=== PATIENT | female | born 1955 | race African-American/Black ===

== ENCOUNTER 2020-11-10 06:56 | Inpatient (IN) | payer MEDICARE, OTHER ==
[~2020-11-10] VITALS: Ht 165.1 cm; Wt 73.6 kg
[~2020-11-10 06:56] MED LIST: B50 PO; GABA300S PO; HYDR-4009 PO; LORA2TAB2 PO; MAG-55 PO; OMEP20TA15 PO; TRIA1TAB92 PO
[2020-11-10 08:44] LABS: BASOPHILS % 0.4 % (0.0-2.0); EOSINOPHILS % 0.8 % (0.0-5.0); HEMATOCRIT. 40.1 % (36.0-48.0); HEMOGLOBIN. 13.5 g/dL (12.0-16.0); LYMPHOCYTES % 52.5 % (20.0-50.0); MEAN CORPUSCULAR HEMOGLOBIN 29.7 pg (28.0-32.0); MEAN CORPUSCULAR VOLUME 88.3 fL (81.0-99.0); MEAN PLATELET VOLUME 7.3 fl (7.4-10.4); MONOCYTES % 13.2 % (2.0-8.0); NEUTROPHILS % 33.1 % (40.0-76.0); PLATELET 206 x1000/uL (130-400); RED BLOOD CELL COUNT 4.54 mill/uL (4.2-5.4); RED CELL DISTRIBUTION WIDTH 14.5 % (11.6-14.6)
[2020-11-10 08:50] LABS: CHLORIDE 109 mEq/L (98-107)
[2020-11-10] MEDS ORDERED: FUROSEMIDE 100MG/10ML VIAL IV STA (09:26)
[2020-11-10] MEDS ORDERED: CALCIUM CHLORIDE 1GM/10ML SYR IV ONE (09:30)
[2020-11-10] MEDS ORDERED: SODIUM BICARBONATE 8.4% 1 MEQ/ML 50ML SYR IV ONE (09:30)
[2020-11-10] MEDS ORDERED: INSULIN REGULAR (HUMULIN R) 300UNITS/3ML VIAL IV ONE (09:30)
[2020-11-10] MEDS ORDERED: DEXTROSE 50% WATER 50ML SYRINGE IV ONE (09:30)
[2020-11-10] MEDS ORDERED: ALBUTEROL (0.083%) 2.5MG/3ML NEB HHN ONE (09:30)
[2020-11-10 10:02] LABS: BG BASE EXCESS 1.5 mmol/L (-2.0-2.0); BG CARBOXYHEMOGLOBIN 0.1 % (0.5-1.5); BG DEOXYHEMOGLOBIN 3.6 % (0.0-5.0); BG FRACTION INSPIRED OXYGEN 21; BG HCO3 ACT 25.2 mmol/L (22.0-26.0); BG METHEMOGLOBIN 0.2 % (0.0-1.5); BG OXYGEN SATURATION 96.4 % (92.0-98.5); BG OXYHEMOGLOBIN 96.1 % (94.0-97.0); BG PCO2 36.8 mmHg (35.0-45.0); BG PH 7.453 (7.350-7.450); BG PO2 81.2 mmHg (75.0-100.0); BG SAMPLE SITE RIGHT BRACHIAL; BG VENT MODE ROOM AIR
[2020-11-10] MEDS ORDERED: DOCUSATE SODIUM 100MG CAPSULE PO PRN (12:00)
[2020-11-10] MEDS ORDERED: IPRATROPIUM/ALBUTEROL 0.5-3(2.5)MG/3ML NEB HHN PRN (12:00)
[2020-11-10] MEDS ORDERED: CLONIDINE 0.1MG TABLET PO PRN (12:00)
[2020-11-10] MEDS ORDERED: NALOXONE HCL 0.4MG/ML VIAL IV PRN (12:00)
[2020-11-10] MEDS ORDERED: ENOXAPARIN 60MG/0.6ML SYR SUBCUT ONE (12:45)
[2020-11-10] MEDS: OMEPRAZOLE 20MG CAPSULE EXTENDED RELEASE PO SCH (14:49)
[2020-11-10] MEDS: GABAPENTIN 300MG CAPSULE PO SCH (14:49)
[2020-11-10 14:52] LABS: *BARBITURATES SCREEN URINE NEGATIVE (NEGATIVE); *BENZODIAZEPINES SCREEN URINE NEGATIVE (NEGATIVE); *COCAINE SCREEN URINE NEGATIVE (NEGATIVE)
[2020-11-10 14:53] LABS: CANNABINOID URINE SCREEN NEGATIVE (NEGATIVE); METHADONE URINE SCREEN NEGATIVE (NEGATIVE)
[2020-11-10 14:54] LABS: *AMPHETAMINES SCREEN URINE NEGATIVE (NEGATIVE)
[2020-11-10 14:59] LABS: PHENCYCLIDINE URINE SCREEN NEGATIVE (NEGATIVE)
[2020-11-10 15:01] LABS: OPIATES URINE SCREEN NEGATIVE (NEGATIVE)
[2020-11-10] MEDS: POLYETHYLENE GLYCOL 3350 (17GM) 1 DOSE PACK PO SCH (15:26)
[2020-11-10 16:28] LABS: C REACTIVE PROTEIN QUANT 9.4 mg/L (0.0-3.0)
[2020-11-10] MEDS: HYDROCODONE/ACETAMINOPHEN 5/325MG TABLET PO PRN (19:44)
[2020-11-10 20:00] VITALS: BP 123/74
[2020-11-10] MEDS: LORAZEPAM 0.5MG TABLET PO PRN (21:09)
[2020-11-10] MEDS: ACETAMINOPHEN 325MG TABLET PO PRN (21:09)
[2020-11-10 22:07] VITALS: BP 123/74
[2020-11-11] VITALS: BP 102/68
[2020-11-11] MEDS: HYDROCODONE/ACETAMINOPHEN 5/325MG TABLET PO PRN ×3 (01:03→21:41)
[2020-11-11 04:00] VITALS: BP 106/58
[2020-11-11] MEDS: ACETAMINOPHEN 325MG TABLET PO PRN ×2 (06:05→20:37)
[2020-11-11 08:00] VITALS: BP 120/73
[2020-11-11] MEDS: ONDANSETRON HCL 4MG/2ML INJ IV PRN ×2 (08:31→19:39)
[2020-11-11] MEDS: OMEPRAZOLE 20MG CAPSULE EXTENDED RELEASE PO SCH (08:58)
[2020-11-11] MEDS: POLYETHYLENE GLYCOL 3350 (17GM) 1 DOSE PACK PO SCH (08:58)
[2020-11-11] MEDS: GABAPENTIN 300MG CAPSULE PO SCH ×3 (08:58→17:27)
[2020-11-11 10:39] LABS: HEMATOCRIT. 40.3 % (36.0-48.0); HEMOGLOBIN. 13.4 g/dL (12.0-16.0); MEAN CORPUSCULAR VOLUME 87.6 fL (81.0-99.0); MEAN PLATELET VOLUME 7.6 fl (7.4-10.4); PLATELET 198 x1000/uL (130-400); RED CELL DISTRIBUTION WIDTH 14.2 % (11.6-14.6)
[2020-11-11 10:40] LABS: CHLORIDE 101 mEq/L (98-107)
[2020-11-11 10:46] LABS: LDL CHOLESTEROL 132 mg/dL (5-100)
[2020-11-11 10:48] LABS: HDL CHOLESTEROL 67 mg/dL (40-59)
[2020-11-11 10:49] LABS: T4 FREE 0.89 ng/dL (0.76-1.46)
[2020-11-11 12:00] VITALS: BP 98/61
[2020-11-11] MEDS: ENOXAPARIN 40MG/0.4ML SYR SUBCUT SCH (12:11)
[2020-11-11] MEDS: SODIUM CHLORIDE 0.9% 1,000 ML IV SCH (12:12)
[2020-11-11 16:00] VITALS: BP 148/69
[2020-11-11 20:00] VITALS: BP 116/63
[2020-11-11] MEDS: LORAZEPAM 0.5MG TABLET PO PRN (21:41)
[2020-11-11 22:18] LABS: CREATINE KINASE 142 IU/L (26-192)
[2020-11-11 22:19] LABS: CREATINE KINASE MB FRACTION < 1.0 ng/mL (0.5-3.6)
[2020-11-12] VITALS: BP 99/64
[2020-11-12 00:37] LABS: CREATINE KINASE 146 IU/L (26-192)
[2020-11-12 00:38] LABS: CREATINE KINASE MB FRACTION < 1.0 ng/mL (0.5-3.6)
[2020-11-12] MEDS: SODIUM CHLORIDE 0.9% 1,000 ML IV SCH ×2 (03:33→12:47)
[2020-11-12] MEDS: HYDROCODONE/ACETAMINOPHEN 5/325MG TABLET PO PRN ×4 (03:33→23:44)
[2020-11-12 04:00] VITALS: BP 91/56
[2020-11-12 07:58] LABS: CHLORIDE 102 mEq/L (98-107)
[2020-11-12 08:00] VITALS: BP 108/61
[2020-11-12 08:04] LABS: CREATINE KINASE 165 IU/L (26-192)
[2020-11-12] MEDS: OMEPRAZOLE 20MG CAPSULE EXTENDED RELEASE PO SCH (09:41)
[2020-11-12] MEDS: ACETAMINOPHEN 325MG TABLET PO PRN ×2 (09:41→23:58)
[2020-11-12] MEDS: POLYETHYLENE GLYCOL 3350 (17GM) 1 DOSE PACK PO SCH (09:42)
[2020-11-12] MEDS: ENOXAPARIN 40MG/0.4ML SYR SUBCUT SCH (09:42)
[2020-11-12] MEDS: GABAPENTIN 300MG CAPSULE PO SCH ×3 (09:43→17:03)
[2020-11-12 09:49] LABS: BASOPHILS % 0.3 % (0.0-2.0); EOSINOPHILS % 0.1 % (0.0-5.0); HEMATOCRIT. 39.6 % (36.0-48.0); HEMOGLOBIN. 13.1 g/dL (12.0-16.0); LYMPHOCYTES % 32.4 % (20.0-50.0); MEAN CORPUSCULAR HEMOGLOBIN 29.4 pg (28.0-32.0); MEAN CORPUSCULAR VOLUME 88.6 fL (81.0-99.0); MEAN PLATELET VOLUME 8.2 fl (7.4-10.4); MONOCYTES % 9.3 % (2.0-8.0); NEUTROPHILS % 57.9 % (40.0-76.0); PLATELET 170 x1000/uL (130-400); RED BLOOD CELL COUNT 4.47 mill/uL (4.2-5.4); RED CELL DISTRIBUTION WIDTH 14.6 % (11.6-14.6)
[2020-11-12 12:00] VITALS: BP 117/95
[2020-11-12] MEDS: GUAIFENESIN-DM 200MG-20MG/10ML UDC PO PRN ×3 (12:46→21:10)
[2020-11-12 15:48] VITALS: BP 142/77
[2020-11-12 16:59] LABS: PLATELET ESTIMATE NORMAL
[2020-11-12] MEDS: LORAZEPAM 0.5MG TABLET PO PRN (17:17)
[2020-11-12 20:00] VITALS: BP 110/55
[2020-11-13] VITALS: BP 130/65
[2020-11-13 04:00] VITALS: BP 115/55
[2020-11-13] MEDS: OMEPRAZOLE 20MG CAPSULE EXTENDED RELEASE PO SCH (07:42)
[2020-11-13] MEDS: SODIUM CHLORIDE 0.9% 1,000 ML IV SCH ×2 (07:42→17:07)
[2020-11-13 08:18] LABS: BASOPHILS % 0.2 % (0.0-2.0); EOSINOPHILS % 0.1 % (0.0-5.0); HEMATOCRIT. 36.9 % (36.0-48.0); HEMOGLOBIN. 12.3 g/dL (12.0-16.0); LYMPHOCYTES % 31.3 % (20.0-50.0); MEAN CORPUSCULAR HEMOGLOBIN 29.6 pg (28.0-32.0); MEAN CORPUSCULAR VOLUME 88.6 fL (81.0-99.0); MEAN PLATELET VOLUME 8.3 fl (7.4-10.4); MONOCYTES % 8.2 % (2.0-8.0); NEUTROPHILS % 60.2 % (40.0-76.0); PLATELET 142 x1000/uL (130-400); RED BLOOD CELL COUNT 4.16 mill/uL (4.2-5.4)
[2020-11-13] MEDS: POLYETHYLENE GLYCOL 3350 (17GM) 1 DOSE PACK PO SCH (08:28)
[2020-11-13] MEDS: GABAPENTIN 300MG CAPSULE PO SCH ×3 (08:28→17:07)
[2020-11-13] MEDS: ENOXAPARIN 40MG/0.4ML SYR SUBCUT SCH (08:29)
[2020-11-13 08:49] LABS: CHLORIDE 105 mEq/L (98-107)
[2020-11-13] MEDS: ACETAMINOPHEN 325MG TABLET PO PRN ×3 (09:11→21:17)
[2020-11-13 12:00] VITALS: BP 124/84
[2020-11-13 16:00] VITALS: BP 138/83
[2020-11-13 20:00] VITALS: BP 137/66
[2020-11-13] MEDS: GUAIFENESIN-DM 200MG-20MG/10ML UDC PO PRN (20:04)
[2020-11-13] MEDS: HYDROCODONE/ACETAMINOPHEN 5/325MG TABLET PO PRN (20:05)
[2020-11-13] MEDS: LORAZEPAM 0.5MG TABLET PO PRN (22:20)
[2020-11-14] VITALS: BP 123/70
[2020-11-14] MEDS: SODIUM CHLORIDE 0.9% 1,000 ML IV SCH ×2 (03:23→16:49)
[2020-11-14 04:00] VITALS: BP 131/57
[2020-11-14] MEDS: OMEPRAZOLE 20MG CAPSULE EXTENDED RELEASE PO SCH (07:40)
[2020-11-14 07:54] LABS: HEMATOCRIT. 38.3 % (36.0-48.0); HEMOGLOBIN. 12.9 g/dL (12.0-16.0); MEAN CORPUSCULAR HEMOGLOBIN 29.9 pg (28.0-32.0); MEAN CORPUSCULAR VOLUME 88.7 fL (81.0-99.0); MEAN PLATELET VOLUME 8.3 fl (7.4-10.4); PLATELET 120 x1000/uL (130-400); RED BLOOD CELL COUNT 4.32 mill/uL (4.2-5.4); RED CELL DISTRIBUTION WIDTH 14.2 % (11.6-14.6)
[2020-11-14 08:00] VITALS: BP 146/66
[2020-11-14] MEDS: GABAPENTIN 300MG CAPSULE PO SCH ×3 (08:34→16:50)
[2020-11-14] MEDS: POLYETHYLENE GLYCOL 3350 (17GM) 1 DOSE PACK PO SCH (08:34)
[2020-11-14] MEDS: ENOXAPARIN 40MG/0.4ML SYR SUBCUT SCH (08:34)
[2020-11-14 08:48] LABS: CHLORIDE 109 mEq/L (98-107)
[2020-11-14 12:00] VITALS: BP 135/65
[2020-11-14] MEDS: ACETAMINOPHEN 325MG TABLET PO PRN (12:26)
[2020-11-14] MEDS: ONDANSETRON HCL 4MG/2ML INJ IV PRN (13:28)
[2020-11-14 16:00] VITALS: BP 92/49
[2020-11-14 20:00] VITALS: BP 119/77
[2020-11-14] MEDS: HYDROCODONE/ACETAMINOPHEN 5/325MG TABLET PO PRN (20:54)
[2020-11-14] MEDS: GUAIFENESIN-DM 200MG-20MG/10ML UDC PO PRN (20:54)
[2020-11-14 21:19] LABS: NUCLEATED RED BLOOD CELLS 1 /100 WBC
[2020-11-14 21:20] LABS: PLATELET ESTIMATE SLIGHTLY DECREASED
[2020-11-15] VITALS: BP 112/74
[2020-11-15 04:00] VITALS: BP 116/57
[2020-11-15] MEDS: SODIUM CHLORIDE 0.9% 1,000 ML IV SCH (05:52)
[2020-11-15 08:00] VITALS: BP 118/65
[2020-11-15] MEDS: ENOXAPARIN 40MG/0.4ML SYR SUBCUT SCH (08:45)
[2020-11-15] MEDS: POLYETHYLENE GLYCOL 3350 (17GM) 1 DOSE PACK PO SCH (08:45)
[2020-11-15] MEDS: GABAPENTIN 300MG CAPSULE PO SCH ×3 (08:45→17:36)
[2020-11-15] MEDS: OMEPRAZOLE 20MG CAPSULE EXTENDED RELEASE PO SCH (08:45)
[2020-11-15 09:40] LABS: BASOPHILS % 0.3 % (0.0-2.0); EOSINOPHILS % 0.2 % (0.0-5.0); HEMATOCRIT. 36.7 % (36.0-48.0); HEMOGLOBIN. 12.2 g/dL (12.0-16.0); LYMPHOCYTES % 51.2 % (20.0-50.0); MEAN CORPUSCULAR HEMOGLOBIN 29.2 pg (28.0-32.0); MEAN CORPUSCULAR VOLUME 87.9 fL (81.0-99.0); MEAN PLATELET VOLUME 8.4 fl (7.4-10.4); MONOCYTES % 6.7 % (2.0-8.0); NEUTROPHILS % 41.6 % (40.0-76.0); PLATELET 138 x1000/uL (130-400); RED BLOOD CELL COUNT 4.18 mill/uL (4.2-5.4); RED CELL DISTRIBUTION WIDTH 14.2 % (11.6-14.6)
[2020-11-15 09:50] LABS: CHLORIDE 109 mEq/L (98-107)
[2020-11-15 12:00] VITALS: BP 111/60
[2020-11-15] MEDS: ONDANSETRON HCL 4MG/2ML INJ IV PRN (12:35)
[2020-11-15 16:00] VITALS: BP 118/69
[2020-11-15 20:00] VITALS: BP 112/51
[2020-11-15] MEDS: FAMOTIDINE 20MG TABLET PO SCH (20:59)
[2020-11-15] MEDS: ACETAMINOPHEN 325MG TABLET PO PRN (21:00)
[2020-11-16] VITALS: BP 101/48
[2020-11-16 04:00] VITALS: BP 110/59
[2020-11-16] MEDS: FAMOTIDINE 20MG TABLET PO SCH ×2 (06:57→21:41)
[2020-11-16 08:00] VITALS: BP 116/61
[2020-11-16] MEDS: GABAPENTIN 300MG CAPSULE PO SCH ×3 (09:20→17:30)
[2020-11-16] MEDS: ENOXAPARIN 40MG/0.4ML SYR SUBCUT SCH (09:20)
[2020-11-16 12:00] VITALS: BP 111/59
[2020-11-16] MEDS: POLYETHYLENE GLYCOL 3350 (17GM) 1 DOSE PACK PO SCH (12:57)
[2020-11-16 16:00] VITALS: BP 111/59
[2020-11-16 20:00] VITALS: BP 121/82
[2020-11-16] MEDS: ACETAMINOPHEN 325MG TABLET PO PRN (21:41)
[2020-11-17] VITALS: BP 107/64
[2020-11-17 04:00] VITALS: BP 115/64
[2020-11-17] MEDS: GUAIFENESIN-DM 200MG-20MG/10ML UDC PO PRN (05:22)
[2020-11-17] MEDS: FAMOTIDINE 20MG TABLET PO SCH (06:44)
[2020-11-17] MEDS: ACETAMINOPHEN 325MG TABLET PO PRN (06:48)
[2020-11-17 08:00] VITALS: BP 131/68
[2020-11-17] MEDS: POLYETHYLENE GLYCOL 3350 (17GM) 1 DOSE PACK PO SCH (08:44)
[2020-11-17] MEDS: GABAPENTIN 300MG CAPSULE PO SCH ×2 (08:45→13:00)
[2020-11-17] MEDS: ENOXAPARIN 40MG/0.4ML SYR SUBCUT SCH (08:45)
[2020-11-17 11:07] VITALS: BP 134/74
[2020-11-17 12:00] VITALS: BP 134/74
== END 2020-11-17 12:50 | disposition home health service (06) | DRG 137 ==
LOC: ER 06:56 → 7WST 10:51 → ENRESERV 17:37 → 7WST 11-16 20:05
PROVIDERS: ADMIT Internal Medicine; ATTEND Internal Medicine
DX: U07.1 COVID-19 (principal); J96.01 Acute respiratory failure with hypoxia; I11.0 Hypertensive heart disease with heart failure; I50.32 Chronic diastolic (congestive) heart failure; E87.5 Hyperkalemia; S09.90XA Unspecified injury of head, initial encounter; J44.9 Chronic obstructive pulmonary disease, unspecified; E78.5 Hyperlipidemia, unspecified; D72.819 Decreased white blood cell count, unspecified; D72.820 Lymphocytosis (symptomatic); D72.821 Monocytosis (symptomatic); I49.3 Ventricular premature depolarization; K58.9 Irritable bowel syndrome, unspecified; F10.10 Alcohol abuse, uncomplicated; Y90.9 Presence of alcohol in blood, level not specified; X58.XXXA Exposure to other specified factors, initial encounter; Z86.73 Personal history of transient ischemic attack (TIA), and cerebral infarction without residual deficits; Z98.51 Tubal ligation status; Z88.5 Allergy status to narcotic agent; Z88.0 Allergy status to penicillin; Z88.8 Allergy status to other drugs, medicaments and biological substances; Z79.899 Other long term (current) drug therapy; Y93.89 Activity, other specified; Y92.89 Other specified places as the place of occurrence of the external cause; Y99.8 Other external cause status; R55 Syncope and collapse; F19.11 Other psychoactive substance abuse, in remission
CPT/HCPCS: 36415; 36600; 70486; 71045; 80048; 80053; 80061; 80305; 82375; 82550; 82553; 82805; 83036; 83615; 83880; 84132; 84439; 84443; 84484; 85025; 85379; 86140; 87635; 93005; 93970; 94644; 99291; C1893; J1650; J1815; J1940; J2405; J3490; J7030

== ENCOUNTER 2020-12-31 15:01 | Emergency (ER) | payer MEDICARE, OTHER ==
[2020-12-31] MEDS ORDERED: SODIUM CHLORIDE 0.9% 1,000 ML IV ONE (15:45)
[2020-12-31 16:30] LABS: BASOPHILS % 0.3 % (0.0-2.0); EOSINOPHILS % 2.3 % (0.0-5.0); HEMATOCRIT. 35.9 % (36.0-48.0); HEMOGLOBIN. 12.3 g/dL (12.0-16.0); LYMPHOCYTES % 39.5 % (20.0-50.0); MEAN CORPUSCULAR HEMOGLOBIN 30.6 pg (28.0-32.0); MEAN CORPUSCULAR VOLUME 89.7 fL (81.0-99.0); MEAN PLATELET VOLUME 7.4 fl (7.4-10.4); MONOCYTES % 6.8 % (2.0-8.0); NEUTROPHILS % 51.1 % (40.0-76.0); PLATELET 252 x1000/uL (130-400); RED CELL DISTRIBUTION WIDTH 15.3 % (11.6-14.6)
[2020-12-31 16:47] LABS: CHLORIDE 101 mEq/L (98-107)
[2020-12-31] MEDS ORDERED: POTASSIUM CHLORIDE 20MEQ TABLET SR PO ONE (17:15)
[2020-12-31 17:25] VITALS: BP 110/64
[2020-12-31 17:36] LABS: CLARITY URINE CLEAR (CLEAR); COLOR URINE YELLOW (YELLOW); KETONES URINE NEGATIVE (NEGATIVE); LEUKOCYTE ESTERASE URINE NEGATIVE (NEGATIVE); NITRITE URINE NEGATIVE (NEGATIVE); OCCULT BLOOD URINE NEGATIVE (NEGATIVE); PROTEIN URINE NEGATIVE (NEGATIVE); SPECIFIC GRAVITY URINE 1.006 (1.005-1.030); UROBILINOGEN URINE 0.2 E.U./dL (0.2-1.0)
== END 2020-12-31 17:52 | disposition home or self-care (01) ==
LOC: ER 15:01
DX: U07.1 COVID-19 (principal); E87.6 Hypokalemia; M32.9 Systemic lupus erythematosus, unspecified; I10 Essential (primary) hypertension; J45.909 Unspecified asthma, uncomplicated; Z88.5 Allergy status to narcotic agent; Z86.73 Personal history of transient ischemic attack (TIA), and cerebral infarction without residual deficits; Z98.51 Tubal ligation status; Z88.0 Allergy status to penicillin
CPT/HCPCS: 36415; 70450; 71045; 80053; 81003; 83690; 84484; 85025; 85379; 93005; 99285; J7030

== ENCOUNTER 2021-02-03 13:00 | Emergency (ER) | payer MEDICARE, OTHER ==
[~2021-02-03] VITALS: Ht 165.1 cm; Wt 80.0 kg
[2021-02-03 14:20] LABS: BASOPHILS % 0.7 % (0.0-2.0); EOSINOPHILS % 5.2 % (0.0-5.0); HEMATOCRIT. 34.1 % (36.0-48.0); HEMOGLOBIN. 11.6 g/dL (12.0-16.0); LYMPHOCYTES % 49.1 % (20.0-50.0); MEAN CORPUSCULAR VOLUME 91.2 fL (81.0-99.0); MEAN PLATELET VOLUME 7.2 fl (7.4-10.4); MONOCYTES % 7.5 % (2.0-8.0); NEUTROPHILS % 37.5 % (40.0-76.0); PLATELET 228 x1000/uL (130-400); RED BLOOD CELL COUNT 3.74 mill/uL (4.2-5.4); RED CELL DISTRIBUTION WIDTH 14.6 % (11.6-14.6)
[2021-02-03 14:25] LABS: CHLORIDE 103 mEq/L (98-107)
[2021-02-03 16:00] VITALS: BP 130/69
== END 2021-02-03 16:09 | disposition home or self-care (01) ==
LOC: ER 13:00
DX: S09.90XA Unspecified injury of head, initial encounter (principal); R55 Syncope and collapse; I10 Essential (primary) hypertension; J45.909 Unspecified asthma, uncomplicated; Z88.6 Allergy status to analgesic agent; Z88.0 Allergy status to penicillin; Z88.5 Allergy status to narcotic agent; Z79.899 Other long term (current) drug therapy; Z98.51 Tubal ligation status; Z86.73 Personal history of transient ischemic attack (TIA), and cerebral infarction without residual deficits; W18.30XA Fall on same level, unspecified, initial encounter; Y93.89 Activity, other specified; Y92.89 Other specified places as the place of occurrence of the external cause; Y99.8 Other external cause status
CPT/HCPCS: 36415; 80053; 84484; 85025; 93005; 99285

== ENCOUNTER 2021-08-20 14:19 | Emergency (ER) | payer MEDICARE, OTHER ==
[~2021-08-20] VITALS: Ht 165.1 cm; Wt 70.0 kg
[2021-08-20 14:21] VITALS: BP 149/90
[2021-08-20] MEDS ORDERED: FAMOTIDINE 20MG/2ML VIAL IV STA (15:27)
[2021-08-20] MEDS ORDERED: MAGNESIUM/ALUMINUM HYDROXIDE/SIMETHICONE 30ML UDC PO STA (15:27)
[2021-08-20] MEDS ORDERED: ONDANSETRON HCL 4MG/2ML INJ IV STA (15:27)
[2021-08-20 15:33] LABS: BASOPHILS % 0.8 % (0.0-2.0); EOSINOPHILS % 4.6 % (0.0-5.0); HEMATOCRIT. 38.1 % (36.0-48.0); HEMOGLOBIN. 12.8 g/dL (12.0-16.0); LYMPHOCYTES % 42.3 % (20.0-50.0); MEAN CORPUSCULAR HEMOGLOBIN 30.8 pg (28.0-32.0); MEAN CORPUSCULAR VOLUME 91.8 fL (81.0-99.0); MEAN PLATELET VOLUME 7.3 fl (7.4-10.4); MONOCYTES % 7.6 % (2.0-8.0); NEUTROPHILS % 44.7 % (40.0-76.0); PLATELET 213 x1000/uL (130-400); RED BLOOD CELL COUNT 4.15 mill/uL (4.2-5.4); RED CELL DISTRIBUTION WIDTH 13.9 % (11.6-14.6)
[2021-08-20 15:37] LABS: CHLORIDE 110 mEq/L (98-107)
[2021-08-20] MEDS ORDERED: FAMOTIDINE 20MG TABLET PO ONE (16:00)
[2021-08-20] MEDS ORDERED: ONDANSETRON HCL 4MG TABLET PO ONE (16:00)
[2021-08-20 17:17] LABS: CLARITY URINE CLEAR (CLEAR); COLOR URINE DARK YELLOW (YELLOW); KETONES URINE TRACE (NEGATIVE); LEUKOCYTE ESTERASE URINE 1+ (NEGATIVE); NITRITE URINE NEGATIVE (NEGATIVE); OCCULT BLOOD URINE NEGATIVE (NEGATIVE); PH URINE 5.5 (4.5-8.0); PROTEIN URINE 1+ (NEGATIVE); SPECIFIC GRAVITY URINE 1.022 (1.005-1.030)
[2021-08-20] MEDS ORDERED: METOCLOPRAMIDE HCL 10MG TABLET PO ONE (17:45)
[2021-08-20] MEDS ORDERED: NITR-87 MT (18:33)
== END 2021-08-20 18:42 | disposition home or self-care (01) ==
LOC: ER 14:19
DX: R10.13 Epigastric pain (principal); N39.0 Urinary tract infection, site not specified; M32.9 Systemic lupus erythematosus, unspecified; E78.00 Pure hypercholesterolemia, unspecified; J45.909 Unspecified asthma, uncomplicated; Z86.73 Personal history of transient ischemic attack (TIA), and cerebral infarction without residual deficits; Z98.51 Tubal ligation status; Z88.5 Allergy status to narcotic agent; Z88.6 Allergy status to analgesic agent
CPT/HCPCS: 36415; 74176; 80053; 81003; 83690; 84484; 85025; 93005; 99285; Q0162; J2405; J8597

== ENCOUNTER 2024-03-01 09:25 | Emergency (ER) | payer MEDICARE, OTHER ==
[~2024-03-01] VITALS: Ht 170.2 cm; Wt 72.6 kg
[~2024-03-01 09:25] MED LIST changes: -GABA300S PO; +GABA300S4 PO; +NITR-87 MT
[2024-03-01 09:26] VITALS: O2SAT 99
[2024-03-01 09:30] VITALS: BP 132/85; PULSE 88; RESP 16; TEMP 98.2; O2SAT 100
[2024-03-01 13:11] LABS: BASOPHILS % 0.6 % (0.0-2.0); HEMATOCRIT. 39.7 % (36.0-48.0); HEMOGLOBIN. 12.8 g/dL (12.0-16.0); LYMPHOCYTES % 26.9 % (20.0-50.0); MEAN CORPUSCULAR HEMOGLOBIN 30.4 pg (28.0-32.0); MEAN CORPUSCULAR HGB CONC 32.3 g/dL (31.0-37.0); MEAN PLATELET VOLUME 7.4 fl (7.4-10.4); MONOCYTES % 7.9 % (2.0-8.0); NEUTROPHILS % 58.6 % (40.0-76.0); PLATELET 183 x1000/uL (130-400); RED BLOOD CELL COUNT 4.22 mill/uL (4.2-5.4); RED CELL DISTRIBUTION WIDTH 14.1 % (11.6-14.6); WHITE BLOOD COUNT 2.7 x1000/uL (4.5-11.0)
[2024-03-01 13:21] LABS: CHLORIDE 105 mEq/L (98-107); POTASSIUM 4.4 mEq/L (3.5-5.1); SODIUM 141 mEq/L (136-145)
[2024-03-01 13:22] LABS: CALCIUM 10.6 mg/dL (8.7-10.4); CARBON DIOXIDE 30 mEq/L (21-32)
[2024-03-01 13:23] LABS: D-DIMER 0.59 mg/L FEU (<0.50); INR 0.9; PROTHROMBIN TIME 10.3 sec (9.6-11.0)
[2024-03-01 13:27] LABS: CREATININE 0.9 mg/dL (0.6-1.0); GLUCOSE 82 mg/dL (70-105); UREA NITROGEN BLOOD 7 mg/dL (9-23)
[2024-03-01 13:29] LABS: ALANINE AMINOTRANSFERASE 20 IU/L (10-49); ALBUMIN 4.4 g/dL (3.2-4.8); ASPARTATE AMINOTRANSFERASE 29 IU/L (<34); BILIRUBIN DIRECT 0.1 mg/dL (<=3.0); BILIRUBIN TOTAL 0.5 mg/dL (0.1-1.0); PROTEIN TOTAL 7.6 g/dL (6.0-8.3); TROPONIN I HIGH SENSITIVITY 5 ng/L (3.0-34)
[2024-03-01 14:20] LABS: CLARITY URINE CLEAR (CLEAR); COLOR URINE YELLOW (YELLOW); GLUCOSE URINE NEGATIVE (NEGATIVE); KETONES URINE NEGATIVE (NEGATIVE); LEUKOCYTE ESTERASE URINE NEGATIVE (NEGATIVE); NITRITE URINE NEGATIVE (NEGATIVE); OCCULT BLOOD URINE NEGATIVE (NEGATIVE); PH URINE 8.5 (4.5-8.0); PROTEIN URINE NEGATIVE (NEGATIVE); SPECIFIC GRAVITY URINE 1.005 (1.005-1.030); UROBILINOGEN URINE 0.2 E.U./dL (0.2-1.0)
[2024-03-01 15:21] LABS: TROPONIN I HIGH SENSITIVITY 6 ng/L (3.0-34)
== END 2024-03-01 18:14 | disposition left against medical advice (07) ==
LOC: ER 09:25
DX: R07.89 Other chest pain (principal); R51.9 Headache, unspecified; I10 Essential (primary) hypertension; J45.909 Unspecified asthma, uncomplicated; Z88.5 Allergy status to narcotic agent; Z88.0 Allergy status to penicillin; Z79.899 Other long term (current) drug therapy; Z98.51 Tubal ligation status; Z86.73 Personal history of transient ischemic attack (TIA), and cerebral infarction without residual deficits
CPT/HCPCS: 36415; 71045; 76641; 80048; 80076; 81003; 83880; 84484; 85025; 85379; 93005; 99285

== ENCOUNTER 2024-05-06 03:14 | Emergency (ER) | payer MEDICARE, MEDICAID ==
[~2024-05-06] VITALS: Ht 167.6 cm; Wt 77.0 kg
[2024-05-06 03:29] VITALS: BP 105/65; PULSE 84; RESP 18; TEMP 97.9; O2SAT 100
[2024-05-06 05:29] LABS: BASOPHILS % 0.7 % (0.0-2.0); EOSINOPHILS % 3.4 % (0.0-5.0); HEMATOCRIT. 37.5 % (36.0-48.0); HEMOGLOBIN. 12.3 g/dL (12.0-16.0); LYMPHOCYTES % 19.2 % (20.0-50.0); MEAN CORPUSCULAR HEMOGLOBIN 31.2 pg (28.0-32.0); MEAN CORPUSCULAR HGB CONC 32.7 g/dL (31.0-37.0); MEAN CORPUSCULAR VOLUME 95.5 fL (81.0-99.0); MEAN PLATELET VOLUME 7.1 fl (7.4-10.4); MONOCYTES % 9.5 % (2.0-8.0); NEUTROPHILS % 67.2 % (40.0-76.0); PLATELET 182 x1000/uL (130-400); RED BLOOD CELL COUNT 3.93 mill/uL (4.2-5.4); RED CELL DISTRIBUTION WIDTH 13.8 % (11.6-14.6); WHITE BLOOD COUNT 3.5 x1000/uL (4.5-11.0)
[2024-05-06 05:54] LABS: CREATININE 1.1 mg/dL (0.6-1.0)
[2024-05-06 06:01] LABS: INR 0.9; PARTIAL THROMBOPLASTIN TIME 23.3 sec (23.4-31.0); PROTHROMBIN TIME 10.3 sec (9.6-11.0)
[2024-05-06 06:53] LABS: TROPONIN I HIGH SENSITIVITY 4 ng/L (3.0-34)
[2024-05-06] MEDS ORDERED: IBUP-2029 MT (07:22)
== END 2024-05-06 08:35 | disposition home or self-care (01) ==
LOC: ER 03:14
DX: S80.02XA Contusion of left knee, initial encounter (principal); S06.0XAA Concussion with loss of consciousness status unknown, initial encounter; J45.909 Unspecified asthma, uncomplicated; I10 Essential (primary) hypertension; Z79.899 Other long term (current) drug therapy; Z86.73 Personal history of transient ischemic attack (TIA), and cerebral infarction without residual deficits; Z88.0 Allergy status to penicillin; Z88.5 Allergy status to narcotic agent; Z98.51 Tubal ligation status; W19.XXXA Unspecified fall, initial encounter; Y93.89 Activity, other specified; Y92.89 Other specified places as the place of occurrence of the external cause; Y99.8 Other external cause status
CPT/HCPCS: 36415; 73560; 80048; 84484; 85025; 93005; 99285

== ENCOUNTER 2024-07-06 14:45 | Emergency (ER) | payer MEDICARE, MEDICAID ==
[~2024-07-06] VITALS: Ht 162.6 cm; Wt 60.0 kg
[~2024-07-06 14:45] MED LIST changes: +IBUP-2029 MT
[2024-07-06 14:48] VITALS: O2SAT 97
[2024-07-06] MEDS: HYDROCODONE/ACETAMINOPHEN 5/325MG TABLET PO STA (15:54)
[2024-07-06 16:57] LABS: BASOPHILS % 0.5 % (0.0-2.0); EOSINOPHILS % 1.8 % (0.0-5.0); HEMATOCRIT. 37.7 % (36.0-48.0); HEMOGLOBIN. 12.3 g/dL (12.0-16.0); LYMPHOCYTES % 18.3 % (20.0-50.0); MEAN CORPUSCULAR HEMOGLOBIN 30.7 pg (28.0-32.0); MEAN CORPUSCULAR HGB CONC 32.7 g/dL (31.0-37.0); MEAN CORPUSCULAR VOLUME 93.7 fL (81.0-99.0); MEAN PLATELET VOLUME 7.9 fl (7.4-10.4); MONOCYTES % 6.6 % (2.0-8.0); NEUTROPHILS % 72.8 % (40.0-76.0); PLATELET 175 x1000/uL (130-400); RED BLOOD CELL COUNT 4.02 mill/uL (4.2-5.4); RED CELL DISTRIBUTION WIDTH 13.7 % (11.6-14.6); WHITE BLOOD COUNT 3.3 x1000/uL (4.5-11.0)
[2024-07-06 17:06] LABS: CHLORIDE 104 mEq/L (98-107); POTASSIUM 3.5 mEq/L (3.5-5.1); SODIUM 142 mEq/L (136-145)
[2024-07-06 17:07] LABS: CALCIUM 10.8 mg/dL (8.7-10.4); CARBON DIOXIDE 32 mEq/L (21-32)
[2024-07-06 17:12] LABS: CREATININE 1.1 mg/dL (0.6-1.0); GLUCOSE 102 mg/dL (70-105); UREA NITROGEN BLOOD 12 mg/dL (9-23)
[2024-07-06 17:13] LABS: TROPONIN I HIGH SENSITIVITY 5 ng/L (3.0-34)
[2024-07-06 17:22] LABS: PROTHROMBIN TIME 10.9 sec (9.6-11.0)
[2024-07-06] MEDS ORDERED: CYCL10TA21 MT (19:35)
[2024-07-06] MEDS: CYCLOBENZAPRINE 10MG TABLET PO ONE (19:55)
[2024-07-06 20:14] VITALS: BP 160/72; PULSE 90; RESP 18; TEMP 36.6; O2SAT 98
[2024-07-06] MEDS ORDERED: IOHEXOL-350 100 ML BOTTLE ONE (23:25)
== END 2024-07-06 20:16 | disposition home or self-care (01) ==
LOC: ER 14:45 → EDBEDREQ 19:15 → ER 20:16
DX: M54.2 Cervicalgia (principal); I95.9 Hypotension, unspecified; Z88.5 Allergy status to narcotic agent; Z88.0 Allergy status to penicillin; Z79.899 Other long term (current) drug therapy
CPT/HCPCS: 99285; 70496; 80048; 85025; 85610; 84484; 36415; 70498; Q9967